=== PATIENT | male | born 1970 | race Caucasian/White ===

== ENCOUNTER 2016-12-31 22:45 | Emergency (ER) | payer OTHER ==
[~2016-12-31] VITALS: Ht 170.2 cm; Wt 88.5 kg
[2016-12-31 22:59] VITALS: Ht 170.2 cm; Wt 88.5 kg
[2017-01-01] MEDS ORDERED: CEPH-443 PO (02:18)
--- NOTE | 2017-01-01 02:27 | ERD ---
ER Documentation Chief Complaint Date/Time DATE: 01/01/17 TIME: 02:24 Chief Complaint L thumb laceration d/t work related, dressing changed now,bleeding contrlld HPI This is a 46-year-old male presenting to the emergency department complaining of a laceration on the nailbed on his left thumb from getting hit by a bar more than 12 hours prior to being seen. Patient states bleeding is controlled. He denies any restricted range of motion. Patient cannot remember his last tetanus ROS All systems reviewed and are negative except as per history of present illness. Medications Home Meds Active Scripts Cephalexin* (Keflex*) 500 Mg Capsule, 500 MG PO QID for 5 Days, CAP Prov:STEFANO ANN PA-C 01/01/17 Allergies Allergies: Coded Allergies: morphine (Verified Allergy, Unknown, 12/31/16) PMhx/Soc Medical and Surgical Hx: pt denies Surgical Hx Hx Neurological Disorder: No Hx Respiratory Disorders: No Hx Cardiac Disorders: Yes (HTN) Hx Psychiatric Problems: No Hx Miscellaneous Medical Probl: No Hx Alcohol Use: Yes Hx Substance Use: No Hx Tobacco Use: Yes Smoking Status: Current every day smoker Physical Exam Vitals Vital Signs Date Time Temp Pulse Resp B/P Pulse Ox O2 Delivery O2 Flow Rate FiO2 12/31/16 22:59 96.9 79 20 131/78 99 Physical Exam General: WD/WN, in no apparent distress, non-toxic appearing HENT: NC/AT Eyes: Conjunctiva normal Neck: Supple Pulm: Clear to auscultation, normal labored breathing; no wheezing/rales/ rhonchi heard CV: Good capillary refill GI: Non-distended, no guarding Back: No masses Ext: No clubbing, cyanosis, or edema Neuro: Moves on all fours Skin: superficial abrasion no suturable laceration Psych: Normal mood Results 24 hrs Current Medications Medications (Trade) Dose Ordered Sig/Hebert Route PRN Reason Start Time Stop Time Status Last Admin Dose Admin Diphtheria/ Tetanus/Acell Pertussis (Adacel) 0.5 ml ONCE ONCE IM* 01/01/17 02:30 01/01/17 02:31 Procedures/MDM This is a 46-year-old male presenting to the emergency department with a laceration adjacent to the nail bed with a partial nail avulsion from getting hit by a bar at work 12 hours or more prior to being seen. Laceration was not suturable, and due to the it being outside the window and risk of infection patient was given prescription Keflex empirically. Copious amount of normal saline was used for irrigation and dressing was applied. Patient stable and neurovascular intact to be discharged home Departure Diagnosis: Primary Impression: Laceration Condition: Stable Patient Instructions: Laceration, Hand Additional Instructions: Follow up in 2 days in your clinic for wound check. STEFANO ANN PA-C Jan 01, 2017 02:27
[2017-01-01] MEDS ORDERED: DIPHTH/TET/ACEL PERTUSS (ADULT) 0.5 ML VIAL IM* ONE (02:30)
== END 2017-01-01 03:03 | disposition home or self-care (01) ==
LOC: FTE 22:45
DX: S61.112A Laceration without foreign body of left thumb with damage to nail, initial encounter (principal); I10 Essential (primary) hypertension; F17.210 Nicotine dependence, cigarettes, uncomplicated; W22.8XXA Striking against or struck by other objects, initial encounter; Y92.89 Other specified places as the place of occurrence of the external cause; Z23 Encounter for immunization
CPT/HCPCS: 90471; 90715; Z7502